=== PATIENT | female | born 1970 | race Caucasian/White ===

== ENCOUNTER → 2023-07-03 | Outpatient (CLI) | payer OTHER ==
--- NOTE | 2023-07-03 13:54 | CA ---
Exercise Stress Test Report Name: Lanette Foley Exam Date: 07/03/2023 10:54 Exam Location: [facility] Ht (in): 68 Wt (lb): 300 BSA: 2.43 Ordering Phys: Blue Correia MD Referring Phys: Danita Greene PAC Technologist: AMEYA GARCIA Age: 52 Gender: F : 1970 Procedure CPT: Indications: R07.89 chest pain ICD-10 Codes: Patient History: CHEST PAIN, PALPITATIONS, HTN, ELEVATED CHOLESTEROL LEVELS, FAMILY HX OF HEART DISEASE. Medications: LEVOTHYROXINE, LOSARTAN, ATORVASTATIN, VENTOLIN Meds past 24 hrs: Pretest Chest Pain: STRESS TEST Henrique Protocol Exercise Duration (min:sec): 06:[address] Depressions (mm): 0 Angina Score: 0 Walker Score: 6.03 Resting HR (bpm): 94 Peak HR (bpm): 160 Resting BP (mmHg): 152 / 100 Peak BP (mmHg): 229 / 50 MPHR: 168 Target HR: 143 % MPHR: 95 METS: 7.1 Total Dose: Peak Dose: Atropine: Double Product: 21423 BP Response: Stress Termination: MAX EXERTION/TARGET HR Stress Symptoms: NO SYMPTOMS Stress Summary: The patient's target heart rate was achieved ECG ANALYSIS Resting ECG: Sinus rhythm. Normal conduction. No arrhythmias. Normal repolarization. Stress ECG: No ECG evidence of ischemia with exercise. CONCLUSIONS Patient falls into low-risk group (DTS >= +5). This associates the patient with an annual CV mortality <= 0.5%. 1. Average exercise tolerance 2. Hypertensive response to exercise 3. Normal electrocardiographic response to exercise with no evidence of stress induced ischemia. Dr. Roseanna Welch MD (Electronically Signed) Final Date: 03 July 2023 13:53
== END | disposition home or self-care (01) ==
LOC: RADNMMAIN 10:15
PROVIDERS: ATTEND Family Medicine
DX: R07.89 Other chest pain (principal); I10 Essential (primary) hypertension
CPT/HCPCS: 93017

== ENCOUNTER → 2024-08-08 | Outpatient (CLI) | payer OTHER ==
--- NOTE | 2024-08-08 11:33 | MR ---
EXAMINATION TYPE: MR knee LT wo con DATE OF EXAM: 08/08/2024 11:18 AM COMPARISON: None. CLINICAL INDICATION: Female, 53 years old with history of S86.912A STRAIN OF UNSP MUSC/TEND AT LOWER LEG LEV, IV Contrast: cc (None if empty) TECHNIQUE: Multiplanar, multisequence imaging of the left knee is performed without IV contrast. FINDINGS: MEDIAL MENISCUS: Anterior and posterior horns are intact without tear. LATERAL MENISCUS: Anterior and posterior horns are intact without tear. CRUCIATE LIGAMENTS: The anterior and posterior cruciate ligaments are intact and unremarkable. COLLATERAL LIGAMENTS: The medial collateral ligament and lateral collateral ligament complex are inta ct and unremarkable. EXTENSOR MECHANISM: Visualized quadriceps and patellar tendons are intact. EFFUSION: Small joint effusion noted. POPLITEAL CYST: No popliteal/ochoa cyst. TRICOMPARTMENT SPACES: Moderate narrowing patellofemoral joint space with changes of chondromalacia p atella. Moderate narrowing medial tibiofemoral joint space. CARTILAGE: 5.8 mm cartilaginous defect medial femoral condyle. BONE MARROW SIGNAL: Bone marrow edema involving the mid tibial plateau. No evidence of fracture. OTHER: No additional significant abnormality is appreciated. IMPRESSION: 1. Changes of osteoarthritis with chondromalacia patella. Cartilaginous defect seen medial femoral co ndyle. Bone marrow edema as noted. [facility], , 08/08/2024 11:30 AM
== END | disposition home or self-care (01) ==
LOC: RADMRIMAIN 09:38
PROVIDERS: ATTEND Emergency Medicine
DX: S86.912A Strain of unspecified muscle(s) and tendon(s) at lower leg level, left leg, initial encounter (principal); M17.12 Unilateral primary osteoarthritis, left knee; M22.42 Chondromalacia patellae, left knee

== ENCOUNTER → 2024-09-15 | Outpatient (CLI) | payer OTHER ==
--- NOTE | 2024-09-15 09:47 | MM ---
Reason for Exam: Screening (asymptomatic). Last mammogram was performed 1 year(s) and 8 month(s) ago. Patient History: Menarche at age 14. First Full-Term at age 38. Late child-bearing (after 30). Postmenopausal. Patient has history of breast feeding. Patient used Hormonal Contraceptives for 2 years. Risk Values: Sadie 5 year model risk: 1.4%. NCI Lifetime model risk: 10.4%. Prior Study Comparison: 01/08/2023 Bilateral MG 3D screening mammo w/cad, [facility]. Tissue Density: There are scattered areas of fibroglandular density. Findings: Analyzed By CAD. There are a few tiny Benign appearing round Calcifications scattered throughout the bilateral breasts. There is no suspicious group of microcalcifications or new suspicious mass in either breast. Overall Assessment: Benign, BI-RAD 2 Management: Screening Mammogram of both breasts in 1 year. . Patient should continue monthly self-breast exams. A clinical breast exam by your physician is recommended on an annual basis. This exam should not preclude additional follow-up of suspicious palpable abnormalities. Note on Sadie scores and lifetime risk: 1. A Sadie score greater than 3% is considered moderate risk. If this is the case, consider specialist referral to assess eligibility for a risk reducing agent. 2. If overall lifetime risk for the development of breast cancer is 20% or higher, the patient may qualify for future screening with alternating mammogram and breast MRI. [facility], , 09/15/2024 9:44 AM. Electronically signed and approved by: James Addison M.D.
== END | disposition home or self-care (01) ==
LOC: RADMAMWWP 09:07
PROVIDERS: ATTEND Family Medicine
DX: Z12.31 Encounter for screening mammogram for malignant neoplasm of breast (principal); R92.323 Mammographic fibroglandular density, bilateral breasts; Z78.0 Asymptomatic menopausal state; Z92.0 Personal history of contraception
CPT/HCPCS: 77063; 77067

== ENCOUNTER → 2024-09-23 | Outpatient (CLI) | payer OTHER ==
--- NOTE | 2024-09-23 09:38 | US ---
EXAMINATION TYPE: US venous doppler duplex LE DATE OF EXAM: 09/23/2024 9:18 AM COMPARISON: MR 08/08/2024 CLINICAL INDICATION: Female, 54 years old with history of M79.662 PAIN IN LEFT LOWER LEG; Left lower leg pain for a few months, no history of DVT and not on thinners, Pain TECHNIQUE: The lower extremity deep venous system is examined utilizing real time linear array sonog ethel with graded compression, color doppler sonography, and spectral doppler. SIDE PERFORMED: Left FINDINGS: VESSELS IMAGED: Common Femoral Vein Deep Femoral Vein Greater Saphenous Vein * Femoral Vein Popliteal Vein Small Saphenous Vein * Proximal Calf Veins (* superficial vessels) Left Leg: Negative for DVT, Color Doppler imaging shows patency of the vessels. Spectral waveforms a re within normal limits. Exam limited by body habitus. IMPRESSION: No ultrasound evidence for deep venous thrombosis. [facility], , 09/23/2024 9:36 AM
== END | disposition home or self-care (01) ==
LOC: RADUSWWP 08:47
PROVIDERS: ATTEND Family Medicine
DX: M79.662 Pain in left lower leg (principal)